=== PATIENT | male | born 1955 | race African-American/Black ===

== ENCOUNTER 2017-05-11 09:23 | Outpatient (CLI) | payer OTHER ==
--- NOTE | 2017-05-11 10:11 | RAD ---
LUMBAR SPINE 2 VIEWS: DATE: 05/11/17. COMPARISON: 02/08/17. HISTORY: Back pain, right lower extremity radiculopathy. FINDINGS: Unilateral right-sided L5 and S1 pedicle screws noted with a vertically oriented interlocking meggan, st able. Intervertebral disk device noted at the lumbosacral junction. There is anterior osteophyte fo rmation at L2-3, L3-4, L4-5, and L5-S1. No acute osseous abnormality. IMPRESSION: Stable postoperative and degenerative changes within the lumbar spine. POS: [facility]
== END 2017-05-11 09:24 | disposition home or self-care (01) ==
LOC: TBSIIMAG 09:23
PROVIDERS: ATTEND Neurological Surgery
DX: M47.26 Other spondylosis with radiculopathy, lumbar region (principal); Z98.890 Other specified postprocedural states
CPT/HCPCS: 72100

== ENCOUNTER 2017-05-29 06:42 | Day surgery (SDC) | payer OTHER ==
[~2017-05-29 06:42] MED LIST: FLU VACC QS2017-18 36 mo. & older 0.5 ML SYRINGE IM ONE
[2017-05-29 07:25] VITALS: BMI 26.8
[2017-05-29 07:27] VITALS: BP 157/82; TEMP 98.4
--- NOTE | 2017-05-29 09:02 | RAD ---
LUMBAR SPINE MYELOGRAM: DATE: 05/29/17. HISTORY: Low back pain and radiculopathy. FINDINGS: Informed consent was obtained prior to the procedure. Utilization Management Nurse imaging of the lumbar spine demonstrates 5 lumbar-type vertebral bodies with unilateral right-s ided L5 and S1 pedicle screws and a vertically oriented interlocking meggan. There is an intervertebral disk device at the L5-S1 level. The patient was placed in the oblique prone position and the skin overlying the lower lumbar spine wa s prepped and draped in normal sterile fashion. The skin overlying the L3 vertebral body was anesthetized with 1% buffered Lidocaine. With intermitt ent fluoroscopic guidance, a 22-gauge spinal needle was advanced into the thecal sac and removal of s tylette yields clear cerebrospinal fluid. Subsequently, approximately 10 cc of Isovue 250 was inject ed, outlining nerve roots of the cauda equina. The needle was removed. The patient tolerated the pr ocedure well. The patient was sent to the CT scanner for a lumbar spine CT myelogram. EXPOSURE DATA: 0.9 minutes of fluoroscopic time, 355.1 mGy*^mw. IMPRESSION: Successful lumbar spine myelogram as detailed above. POS: [facility]
--- NOTE | 2017-05-29 10:35 | CT ---
LUMBAR SPINE CT MYELOGRAM: DATE: 05/29/17. COMPARISON: 08/25/16. HISTORY: Low back pain and lumbar radiculopathy. TECHNIQUE: Following the intrathecal administration of iodinated contrast media, serial axial CT imaging obtaine d at 2.5 mm intervals from the lower thoracic spine through the lower sacrum. Coronal and sagittal r eformatted imaging obtained. FINDINGS: There is a right-sided pedicle screw at the L5 and S1 levels, new when compared to the prior exam. T here is a vertically oriented interlocking meggan. There is a disk device present at the L5-S1 level as well. No evidence for hardware failure is noted. Evaluation of the nonosseous structures demonstrates scattered atherosclerotic calcification of the a bdominal aorta and the pelvic arterial structures. There is no anterolisthesis or retrolisthesis noted. Conus medullaris terminates at the L1-2 level. T12-L1: No central canal or neural foraminal stenosis. L1-2: No central canal or neural foraminal stenosis. L2-3: Mild bilateral facet hypertrophy/hypertrophy of ligamentum flavum. No significant central can al or neural foraminal stenosis. L3-4: Mild bilateral facet hypertrophy and hypertrophy of the ligamentum flavum. Minimal disk bulge . No significant central canal or neural foraminal stenosis. L4-5: Mild bilateral facet hypertrophy and hypertrophy of the ligamentum flavum. Mild disk bulge. No significant central canal stenosis. Mild bilateral neural foraminal stenosis. L5-S1: Bilateral laminectomy change noted with no central canal stenosis. Mild bilateral facet hype rtrophy. The patient appears status post facetectomy n the right. There is no significant central c anal or neural foraminal stenosis. No worrisome lytic or blastic bone lesions. No acute fracture. IMPRESSION: Postoperative changes as detailed above. No high-grade central canal or neural foraminal stenosis is noted within the lumbar spine at any level. POS: [facility]
[2017-05-29] MEDS ORDERED: Iopamidol-M 200 41% 20 ML VIAL ONE (13:58)
== END 2017-05-29 09:40 | disposition home or self-care (01) ==
LOC: RAD 06:42
PROVIDERS: ATTEND Neurological Surgery
PROC: B01B1ZZ Fluoroscopy of Spinal Cord using Low Osmolar Contrast (ICD-10-PCS; principal; 2017-05-29)
DX: M54.16 Radiculopathy, lumbar region (principal); Z88.8 Allergy status to other drugs, medicaments and biological substances; Z98.1 Arthrodesis status
CPT/HCPCS: 62304; 72132

== ENCOUNTER 2018-09-08 10:36 | Emergency (ER) | payer BC, OTHER ==
[2018-09-08 11:06] LABS: #Eosinphils 0.1 thou/uL (0.0-0.7); #Lymphocytes 1.4 thou/uL (1.20-3.40); #Monocytes 0.5 thou/uL (0.11-0.59); #Neutrophils 3.1 thou/uL (1.40-6.50); %Basophils 0.8 % (0.0-1.0); %Eosinophils 2.5 % (0.0-10.0); %Lymphocytes 27.1 % (21.0-51.0); %Neutrophils 59.6 % (42.0-75.0); Hemoglobin 11.9 g/dL (14.0-18.0); Mean Corpuscular HGB CONC 32.6 g/dL (32.0-36.0); Mean Corpuscular Hemoglobin 28.7 pg (27.0-31.0); Mean Corpuscular Volume 88.1 fL (78.0-98.0); Platelet Count 156 thou/uL (130-400); Red Blood Cell (RBC) Count 4.13 mill/uL (4.70-6.10); White Blood Cell (WBC) Count 5.1 thou/uL (4.8-10.8)
[2018-09-08 11:23] LABS: ALT (SGPT) 13 U/L (8-55); AST (SGOT) 14 U/L (5-34); Albumin 3.6 g/dL (3.4-4.8); Alkaline Phosphatase 96 U/L (40-150); Anion Gap 13 mmol/L (10-20); BUN (Urea Nitrogen) 23 mg/dL (8.4-25.7); Bilirubin, Total 0.4 mg/dL (0.2-1.2); Calc. Creatinine Clearance 0 mL/min (70-130); Calcium 9.4 mg/dL (7.8-10.44); Carbon Dioxide 23 mmol/L (23-31); Chloride 107 mmol/L (98-107); Estimated GFR-MDRD 77; Globulin 3.4 g/dL (2.4-3.5); Glucose 208 mg/dL (80-115); Potassium 4.4 mmol/L (3.5-5.1); Sodium 139 mmol/L (136-145)
== END 2018-09-08 12:13 | disposition home or self-care (01) ==
LOC: SCSER 10:36
DX: I10 Essential (primary) hypertension (principal); E78.5 Hyperlipidemia, unspecified; E11.9 Type 2 diabetes mellitus without complications; Z79.82 Long term (current) use of aspirin; Z79.4 Long term (current) use of insulin; Z79.899 Other long term (current) drug therapy; F17.210 Nicotine dependence, cigarettes, uncomplicated
CPT/HCPCS: 36415; 80053; 84484; 85025; 93005

== ENCOUNTER 2018-10-18 18:04 | Observation (INO) | payer BC ==
[~2018-10-18 18:04] MED LIST changes: -FLU VACC QS2017-18 36 mo. & older 0.5 ML SYRINGE IM ONE; +ISOVUE-370 76%-LOCM 1 ML ONE
[2018-10-18 18:53] LABS: #Eosinphils 0.3 thou/uL (0.0-0.7); #Lymphocytes 1.4 thou/uL (1.20-3.40); #Monocytes 0.6 thou/uL (0.11-0.59); #Neutrophils 5.8 thou/uL (1.40-6.50); %Eosinophils 4.1 % (0.0-10.0); %Lymphocytes 17.3 % (21.0-51.0); %Monocytes 6.8 % (0.0-10.0); %Neutrophils 71.8 % (42.0-75.0); Hemoglobin 13.1 g/dL (14.0-18.0); Mean Corpuscular HGB CONC 32.8 g/dL (32.0-36.0); Mean Corpuscular Hemoglobin 28.7 pg (27.0-31.0); Mean Corpuscular Volume 87.6 fL (78.0-98.0); Platelet Count 187 thou/uL (130-400); RBC Distribution Width 13.3 % (11.5-14.5); Red Blood Cell (RBC) Count 4.55 mill/uL (4.70-6.10); White Blood Cell (WBC) Count 8.1 thou/uL (4.8-10.8)
--- NOTE | 2018-10-18 18:54 | RAD ---
Portable frontal chest radiograph: 10/18/2018 COMPARISON: None HISTORY: Shortness of breath FINDINGS: Lungs are clear. Mild increased linear interstitial density and pulmonary hyperinflation. S carisa lead transvenous AICD inserted via a left subclavian approach. Heart and mediastinal contours appear within normal limits. IMPRESSION: No acute findings.
[2018-10-18 19:13] LABS: ALT (SGPT) 13 U/L (8-55); AST (SGOT) 17 U/L (5-34); Albumin 4.2 g/dL (3.4-4.8); Alkaline Phosphatase 106 U/L (40-150); Anion Gap 15 mmol/L (10-20); BUN (Urea Nitrogen) 22 mg/dL (8.4-25.7); Bilirubin, Total 0.6 mg/dL (0.2-1.2); Calc. Creatinine Clearance 0 mL/min (70-130); Calcium 9.8 mg/dL (7.8-10.44); Carbon Dioxide 24 mmol/L (23-31); Chloride 102 mmol/L (98-107); Estimated GFR-MDRD 68; Globulin 3.7 g/dL (2.4-3.5); Glucose 134 mg/dL (80-115); Potassium 4.2 mmol/L (3.5-5.1); Protein, Total 7.9 g/dL (5.8-8.1); Sodium 137 mmol/L (136-145)
[2018-10-18 19:40] LABS: CK (CPK) 85 U/L (30-200); Lipase 40 U/L (8-78)
[2018-10-18] MEDS ORDERED: Acetaminophen 500 MG TAB ONE (20:17)
--- NOTE | 2018-10-18 20:35 | CT ---
CT angiogram chest: 10/18/2018 COMPARISON: None HISTORY: Weakness, lightheaded, dyspnea, assess for pulmonary embolism TECHNIQUE: Axial CT imaging at 2.5 mm intervals through the chest with IV contrast using CT angiogram protocol with coronal and sagittal 3-D reformatted imaging. FINDINGS: Single lead transvenous AICD noted. No mediastinal lymphadenopathy, hilar, or axillary lymp hadenopathy. No pleural, pericardial, or mediastinal fluid. The imaged upper abdomen appears grossly unremarkable. There is mild diffuse wall thickening of the esophagus versus underdistention. Coronary arterial stent material noted on the left. No pneumothorax is evident on either side. Mild subpleural emphysematous changes are noted within the upper lobes, right greater than left. Gran ulomata are noted within the lung parenchyma bilaterally. There is a small groundglass nodule within the posterior aspect of the right lower lobe on axial imag e 91 and coronal image 104 measuring approximately 8 mm. No pulmonary arterial filling defect is seen to suggest the presence of acute pulmonary arterial embo lism. Review of the osseous structures demonstrates no worrisome lytic or blastic lesions. IMPRESSION: No evidence for pulmonary arterial embolism. 8 mm groundglass nodule within the right low er lobe for which follow-up CT examination of the chest is advised in 6 months.
[2018-10-18 20:39] LABS: Bilirubin Negative (Negative); Blood, Urine Negative (Negative); Clarity CLEAR (Clear); Glucose, Urine (Dipstick) Negative (Negative); Leukocyte Negative (Negative); Nitrite Negative (Negative); Protein, Urine (Dipstick) 30 mg/dL (Neg-Trace); Specific Gravity, Urine 1.036 (1.002-1.036)
[2018-10-18 20:42] LABS: Bacteria/HPF None Seen HPF (None Seen); Hyaline Casts/LPF 0-3 HYALINE CAST LPF (0-3 Hyaline); Squamous Epithelial None Seen HPF (0-3); WBC/HPF 0-3 HPF (0-3)
--- NOTE | 2018-10-18 21:25 | PDOC.FPRHP ---
- Allergies/Adverse Reactions Allergies Allergy/AdvReac Type Severity Reaction Status Date / Time gabapentin Allergy Hives Verified 11/28/16 08:16 - Home Medications Medication Instructions Recorded Confirmed Type Insulin Lispro Protamin/Lispro 5 unit SC BID-AC 01/29/16 05/29/17 History [HumaLOG Mix 75/25 KwikPen] Aspirin [Aspir-Low] 81 mg PO QAM 08/24/16 05/29/17 History Carvedilol 12.5 mg PO QAM 08/24/16 05/29/17 History Sotalol HCl [Betapace] 80 mg PO QAM 08/24/16 05/29/17 History Valsartan/Hydrochlorothiazide 1 each PO DAILY 08/24/16 05/29/17 History [Valsartan-Hctz 320-25 mg Tab] Dapagliflozin Propanediol [Farxiga] 10 mg PO QAM 11/28/16 05/29/17 History Rosuvastatin Calcium 10 mg PO QAM 11/28/16 05/29/17 History - History PMHx: PSHx: FHx: Social: - Vital signs BP: [] HR: [] RR: [] Tmax: [] Pox: []% on [] Wt: [] FMR H&P: Results - Labs Result Diagrams: 10/18/18 18:42 10/18/18 18:42 Lab results: WBC 8.1 thou/uL (4.8-10.8) 10/18/18 18:42 Hgb 13.1 g/dL (14.0-18.0) L 10/18/18 18:42 Hct 39.9 % (42.0-52.0) L 10/18/18 18:42 MCV 87.6 fL (78.0-98.0) 10/18/18 18:42 Plt Count 187 thou/uL (130-400) 10/18/18 18:42 Neutrophils % 71.8 % (42.0-75.0) 10/18/18 18:42 Sodium 137 mmol/L (136-145) 10/18/18 18:42 Potassium 4.2 mmol/L (3.5-5.1) 10/18/18 18:42 Chloride 102 mmol/L (98-107) 10/18/18 18:42 Carbon Dioxide 24 mmol/L (23-31) 10/18/18 18:42 BUN 22 mg/dL (8.4-25.7) 10/18/18 18:42 Creatinine 1.30 mg/dL (0.7-1.3) 10/18/18 18:42 Glucose 134 mg/dL (80-115) H 10/18/18 18:42 Lactic Acid 1.6 mmol/L (0.5-2.2) 10/18/18 18:54 Calcium 9.8 mg/dL (7.8-10.44) 10/18/18 18:42 Total Bilirubin 0.6 mg/dL (0.2-1.2) 10/18/18 18:42 AST 17 U/L (5-34) 10/18/18 18:42 ALT 13 U/L (8-55) 10/18/18 18:42 Alkaline Phosphatase 106 U/L (40-150) 10/18/18 18:42 Creatine Kinase 85 U/L (30-200) 10/18/18 18:42 B-Natriuretic Peptide 72.4 pg/mL (0-100) 10/18/18 18:42 Serum Total Protein 7.9 g/dL (5.8-8.1) 10/18/18 18:42 Albumin 4.2 g/dL (3.4-4.8) 10/18/18 18:42 Lipase 40 U/L (8-78) 10/18/18 18:42 Urine Ketones Negative mg/dL (Negative) 10/18/18 20:25 Urine Blood Negative (Negative) 10/18/18 20:25 Urine Nitrite Negative (Negative) 10/18/18 20:25 Ur Leukocyte Esterase Negative (Negative) 10/18/18 20:25 Urine RBC 4-6 HPF (0-3) 10/18/18 20:25 Urine WBC 0-3 HPF (0-3) 10/18/18 20:25 Ur Squamous Epith Cells None Seen HPF (0-3) 10/18/18 20:25 Urine Bacteria None Seen HPF (None Seen) 10/18/18 20:25 FMR H&P: Upper Level - Plan Date/Time: 10/18/182124 I, [], have evaluated this patient and agree with findings/plan as outlined by international controller resident. Pertinent changes/additions are listed here.
[2018-10-18 22:08] LABS: Troponin I 0.014 ng/mL (< 0.028)
[2018-10-18] MEDS ORDERED: Morphine 4 MG/ML VIAL ONE (22:20)
[2018-10-18] MEDS ORDERED: Ondansetron PF 4 MG/2 ML Vial IVP PRN (22:25)
[2018-10-18] MEDS ORDERED: Ondansetron ODT 4 MG TAB PO PRN (22:25)
[2018-10-18] MEDS ORDERED: Acetaminophen 325 MG TAB PO PRN (22:25)
[2018-10-18] MEDS ORDERED: Ondansetron PF 4 MG/2 ML Vial ONE (22:41)
[2018-10-18] MEDS ORDERED: Ondansetron PF 4 MG/2 ML Vial SLOW IVP SCH (23:15)
[2018-10-18] MEDS ORDERED: Sodium Chloride 0.9% 2,000 ML IV SCH (23:15)
[2018-10-19] MEDS: Nicotine 14 MG PATCH TD SCH ×2 (00:31→21:21)
[2018-10-19] MEDS: Lactated Ringer's 1,000 ML IV SCH ×2 (00:31→07:00)
--- NOTE | 2018-10-19 00:34 | PDOC.FPRHP ---
- History of Present Illness Chief Complaint: SOB, abdominal pain History of Present Illness: 63 yo M with PMH CAD, HTN, HLD presnets with for 3 day history of malaise, dizziness, nausea with standing, SOB with exertion, weakness, fever/chills. Also notes intermittent LLQ abdominal pain that started last night, not associated with eating. Endorses decreased PO intake and urine output, "sinus headache". Denies vomiting. 2 loose BMs yesterday, none since. The most bothersome symptoms prompting evaluation were weakness, SOB and abdominal pain. Has had 2 colonoscopies in past. Last one >10 years ago. ED Course: levaquin, tylenol, 1L - Allergies/Adverse Reactions Allergies Allergy/AdvReac Type Severity Reaction Status Date / Time gabapentin Allergy Hives Verified 11/28/16 08:16 - Home Medications Medication Instructions Recorded Confirmed Type Aspirin [Aspir-Low] 81 mg PO QAM 08/24/16 10/19/18 History Carvedilol 12.5 mg PO BID 08/24/16 10/19/18 History Sotalol HCl [Betapace] 80 mg PO QAM 08/24/16 10/19/18 History Amlodipine Besylate [amLODIPine 2.5 mg PO DAILY 10/19/18 10/19/18 History Besylate] Liraglutide [Victoza 2-Patrick] 1.8 mg SC BID 10/19/18 10/19/18 History Lisinopril 20 mg PO DAILY 10/19/18 10/19/18 History Ticagrelor [Brilinta] 1 tab PO BID 10/19/18 10/19/18 History metFORMIN [Glucophage] 1,000 mg PO BID- 10/19/18 10/19/18 History - History PMHx: DM, CAD, HTN, HLD, prostate cancer s/p surgery in 90s. PSHx: L wrist, prostate, 2 back surgeries, 2 stents, defibrillator FHx:DM, CAD, colon cancer Social: Current smoker on chantix trying to quit, 30 pack year history. No tobacco or alcohol use. - Review of Systems General: reports: fever/chills, weight/appetite/sleep changes, fatigue Eyes: reports: other (sinus headache). denies: vision changes ENT: denies: nasal congestion Respiratory: reports: shortness of breath, exercise intolerance. denies: cough Cardiovascular: denies: chest pain, palpitation, edema Gastrointestinal: reports: nausea, diarrhea, abdominal pain. denies: vomiting Genitourinary: denies: dysuria Skin: denies: rashes, lesions Musculoskeletal: denies: pain, swelling Neurological: reports: weakness. denies: numbness - Vital signs BP: 150/88 HR: 89 RR: 18 Tmax: 100.4 Pox: 100% on RA Wt: 95 kg - Physical Exam Constitutional: NAD HEENT: normocephalic and atraumatic, EOMI, grossly normal vision, grossly normal hearing, oropharynx clear Neck: supple Heart: RRR, normal S1/S2, no edema Lungs: CTAB, no respiratory distress Abdomen: soft, bowel sounds present, other (mild LLQ tenderness with deep palpation) Neurological: no focal deficit Skin: no rash/lesions, good turgor Heme/Lymphatic: no unusual bruising or bleeding Psychiatric: normal mood and affect FMR H&P: Results - Labs Result Diagrams: 10/19/18 03:33 10/19/18 03:33 Lab results: WBC 8.1 thou/uL (4.8-10.8) 10/18/18 18:42 Hgb 13.1 g/dL (14.0-18.0) L 10/18/18 18:42 Hct 39.9 % (42.0-52.0) L 10/18/18 18:42 MCV 87.6 fL (78.0-98.0) 10/18/18 18:42 Plt Count 187 thou/uL (130-400) 10/18/18 18:42 Neutrophils % 71.8 % (42.0-75.0) 10/18/18 18:42 Sodium 137 mmol/L (136-145) 10/18/18 18:42 Potassium 4.2 mmol/L (3.5-5.1) 10/18/18 18:42 Chloride 102 mmol/L (98-107) 10/18/18 18:42 Carbon Dioxide 24 mmol/L (23-31) 10/18/18 18:42 BUN 22 mg/dL (8.4-25.7) 10/18/18 18:42 Creatinine 1.30 mg/dL (0.7-1.3) 10/18/18 18:42 Glucose 134 mg/dL (80-115) H 10/18/18 18:42 Lactic Acid 1.6 mmol/L (0.5-2.2) 10/18/18 18:54 Calcium 9.8 mg/dL (7.8-10.44) 10/18/18 18:42 Total Bilirubin 0.6 mg/dL (0.2-1.2) 10/18/18 18:42 AST 17 U/L (5-34) 10/18/18 18:42 ALT 13 U/L (8-55) 10/18/18 18:42 Alkaline Phosphatase 106 U/L (40-150) 10/18/18 18:42 Creatine Kinase 85 U/L (30-200) 10/18/18 18:42 B-Natriuretic Peptide 72.4 pg/mL (0-100) 10/18/18 18:42 Serum Total Protein 7.9 g/dL (5.8-8.1) 10/18/18 18:42 Albumin 4.2 g/dL (3.4-4.8) 10/18/18 18:42 Lipase 40 U/L (8-78) 10/18/18 18:42 Urine Ketones Negative mg/dL (Negative) 10/18/18 20:25 Urine Blood Negative (Negative) 10/18/18 20:25 Urine Nitrite Negative (Negative) 10/18/18 20:25 Ur Leukocyte Esterase Negative (Negative) 10/18/18 20:25 Urine RBC 4-6 HPF (0-3) 10/18/18 20:25 Urine WBC 0-3 HPF (0-3) 10/18/18 20:25 Ur Squamous Epith Cells None Seen HPF (0-3) 10/18/18 20:25 Urine Bacteria None Seen HPF (None Seen) 10/18/18 20:25 FMR H&P: A/P - Problem List (1) SIRS (systemic inflammatory response syndrome) Current Visit: Yes Status: Acute Code(s): R65.10 - SIRS OF NON-INFECTIOUS ORIGIN W/O ACUTE ORGAN DYSFUNCTION (2) Shortness of breath on exertion Current Visit: Yes Status: Acute Code(s): R06.02 - SHORTNESS OF BREATH (3) Lung nodule Current Visit: Yes Status: Acute Code(s): R91.1 - SOLITARY PULMONARY NODULE (4) CAD (coronary artery disease) Current Visit: Yes Status: Chronic Code(s): I25.10 - ATHSCL HEART DISEASE OF [place] CORONARY ARTERY W/O ANG PCTRS (5) HTN (hypertension) Current Visit: Yes Status: Chronic Code(s): I10 - ESSENTIAL (PRIMARY) HYPERTENSION (6) Tobacco abuse Current Visit: Yes Status: Chronic Code(s): Z72.0 - TOBACCO USE (7) Diabetes mellitus Current Visit: No Status: Chronic Code(s): E11.9 - TYPE 2 DIABETES MELLITUS WITHOUT COMPLICATIONS Qualifiers: Diabetes mellitus type: type 2 Diabetes mellitus retirement insulin use: with retirement use (8) HLD (hyperlipidemia) Current Visit: No Status: Chronic Code(s): E78.5 - HYPERLIPIDEMIA, UNSPECIFIED - Plan SIRS with unclear source, possibly 2/2 diverticulitis - multiple symptoms, but intermittent LLQ pain more bothersome symptom - fever 100.4, tachycardia in ED. WBC 8, no tachypnea. - flu negative - EKG with new T wave inversions, sinus tachycardia, LVH - radiology recommended CT ab/pelvis with IV contrast in am preferred as pt already received contrast for CTA. Alternative would be PO contrast tonight if necessary. - Continue flagyl 10/19 and levaquin 10/18 SOB with exertion - no tachypnea on exam, satting well on RA - d-dimer elevated, CTA negative for PE - no CP, troponin negative Incidental lung nodule on CT - 8mm in RLL, recommend follow up CT in 6 months DM2, uncontrolled - reported A1c of 10 in clinic 09/13 (down from 14) - PCP working on better control - On metformin, victoza - will continue. Per clinic chart patient supposed to take 70/30 30 U BID, however patient stopped taking. Encouraged to restart at most recent clinic visit. BG 130, will hold insulin for now and add back when appropriate. - accuchecks Chronic normocytic anemia - continue to monitor CAD s/p stent (1 placed 3 months ago) - continue home brilinta, aspirin HTN - hold home sotalol, amlodipine, carvedilol, lisinopril HLD - not on home statin, in clinic chart but does not report taking Tobacco abuse - current smoker, trying to quit on chantix Hx of "defibrillator for slow heart rate" Dispo: admit to telemetry inpatient Diet: HH/CC Ppx: lovenox PCP: Ayah ALMONTE Case discussed with Dr. Hays FMR H&P: Upper Level - Pertinent history 63 yo AAM with PMHx poorly controlled DM and HTN presents to ED with cc of malaise, shortness of breath, and newly developed abdominal pain over the last 3 days. Today the abdominal pain has increased a bit but it was predominately shortness of breath with exertion that brought him in. He has also had fever/ chills. His reports he was also complaining of abdominal pain last night. Denies n/v but did have a couple of loose stools yesterday. Denies sick contacts or recent travel. Also endorses mild headache. - Pertinent findings VSS Labs and imaging reviewed Gen: awake, alert, oriented x3 HEENT: NCAT, MMM, trachea midline, no JVD, no nasal congestion CV: RRR, no murmur noted RESP: CTAB ABD: soft, TTP in LLQ, bowel sounds present throughout, no rebound or rigidity EXT: pulses 2+ throughout, no edema, strength 5/5 throughout SKIN: no rashes or lesions - Plan Date/Time: 10/19/18 0034 63 yo M with malaise, meeting SIRS criteria with suspected diverticulitis 1. SIRS with suspected diverticulitis - Will give 2nd L fluids in ED, continue maintenance fluids - Given levaquin, will add flagyl - CT A/P in the morning, radiology recommends IV and PO contrast and had CTA tonight - no acute abdomen at this time - Will admit to observation 2. Shortness of breath with exertion - EKG with new t wave inversion but no documented EKG since recent stent placement - Trop negative - No SOB at this time - D dimer elevated, CTA negative - Continue to monitor Please see Dr. Cantu's note regarding A/P for remainder of comorbidities including HTN, DM, tobacco abuse, CAD I, Heidi Cm MD, PGY-3, have evaluated this patient and agree with findings/ plan as outlined by mechanical engineering intern resident. Pertinent changes/additions are listed here. Addendum - Attending - Attending Attestation Date/Time: 10/19/18 3321 I personally evaluated the patient and discussed the management with Dr. Cantu 'on 10/18/2018 I agree with the History, Examination, Assessment and Plan documented above with any addition or exceptions noted below - 63 yo male with h/o DM, HTN, CAD s /p AICD presents c.o 3 day h/o malaise, dizziness, SOB and abdominal pain. Denies any N/V. Had some loose stools. Endorses poor appetite. Subj fever/ chills. Abdominal pain primarily on left side. PMH/PSH/Meds/SH reviewed and agree with resident's documentation. T 100.4 P87 BP 150/88 RR18 Exam repeated by me and agree with resident's findings. Labs: WBC=8.1, H/H=13.1/39.9 , Xlp=139, Hh=793, K=4.2, Rk=912, CO2=24, BUn/Cr=22/1.30, Tnzi=115, U/A- negative, AST/ALT=17/13, Trop I<0.010, lipase=40, CXR- NAD, CTA- Neg for PE. A/P : 1) SIRS - possible diverticulitis- Obs to tele. Plan for CT abd in AM- needed to defer due to recent contrast with CTA. Continue levaquin and flagyl. 2) SOB- CTA negative; no tachypnea, normal sats- continue to monitor, 3) DM- monitor BG
[2018-10-19 03:43] LABS: #Eosinphils 0.1 thou/uL (0.0-0.7); #Lymphocytes 1.3 thou/uL (1.20-3.40); #Monocytes 0.6 thou/uL (0.11-0.59); #Neutrophils 8.5 thou/uL (1.40-6.50); %Basophils 0.1 % (0.0-1.0); %Eosinophils 1.1 % (0.0-10.0); %Lymphocytes 12.5 % (21.0-51.0); %Monocytes 5.8 % (0.0-10.0); %Neutrophils 80.4 % (42.0-75.0); Hemoglobin 11.3 g/dL (14.0-18.0); Mean Corpuscular HGB CONC 32.9 g/dL (32.0-36.0); Mean Corpuscular Hemoglobin 29.1 pg (27.0-31.0); Mean Corpuscular Volume 88.3 fL (78.0-98.0); Mean Platelet Volume 7.7 fL (7.4-10.4); Platelet Count 157 thou/uL (130-400); RBC Distribution Width 13.4 % (11.5-14.5); Red Blood Cell (RBC) Count 3.88 mill/uL (4.70-6.10); White Blood Cell (WBC) Count 10.6 thou/uL (4.8-10.8)
[2018-10-19] MEDS ORDERED: Dextrose 5% in Water 1,000 ML IV PRN (04:24)
[2018-10-19] MEDS ORDERED: Dextrose 50% Abboject 50 ML SYRINGE SLOW IVP PRN (04:24)
[2018-10-19] MEDS ORDERED: HumaLOG 300 UNITS/3 ML VIAL SC PRN ×3 (04:24→13:12)
[2018-10-19 04:36] LABS: Anion Gap 11 mmol/L (10-20); BUN (Urea Nitrogen) 20 mg/dL (8.4-25.7); Calc. Creatinine Clearance 80 mL/min (70-130); Calcium 8.3 mg/dL (7.8-10.44); Carbon Dioxide 22 mmol/L (23-31); Chloride 108 mmol/L (98-107); Estimated GFR-MDRD 69; Glucose 173 mg/dL (80-115); Potassium 4.1 mmol/L (3.5-5.1); Sodium 137 mmol/L (136-145)
[2018-10-19] MEDS ORDERED: Liraglutide [Victoza 2-Pak] 1.8 MG SC SCH (09:00)
[2018-10-19] MEDS ORDERED: HumuLIN 70/30 (300 UNITS/3 ML VIAL) SC SCH (09:00)
--- NOTE | 2018-10-19 09:09 | PDOC.FM ---
- Subjective Subjective: Abd pain has resolved. Diarreha x1. No emesis. No other complaints, no fevers. - Objective MAR Reviewed: Yes Vital Signs & Weight: Vital Signs (12 hours) Temp Pulse Resp BP Pulse Ox 10/19/18 03:32 99 F 95 17 103/51 L 97 10/19/18 00:23 99 F 89 18 119/68 98 Weight Weight 95.254 kg I&O: 10/18/18 10/19/18 10/20/18 06:59 06:59 06:59 Intake Total 1180 Output Total 400 Balance 780 Result Diagrams: 10/19/18 03:33 10/19/18 03:33 Phys Exam - Physical Examination Constitutional: NAD HEENT: PERRLA dry mucosal membranes Neck: no nodes, full ROM Cardiovascular: RRR, no significant murmur Gastrointestinal: soft, non-tender, no distention, positive bowel sounds Musculoskeletal: no edema, edema present Neurological: non-focal, moves all 4 limbs Dx/Plan (1) Acute diverticulitis Code(s): K57.92 - DVTRCLI OF INTEST, PART UNSP, W/O PERF OR ABSCESS W/O BLEED Status: Acute (2) Lung nodule Code(s): R91.1 - SOLITARY PULMONARY NODULE Status: Acute (3) SIRS (systemic inflammatory response syndrome) Code(s): R65.10 - SIRS OF NON-INFECTIOUS ORIGIN W/O ACUTE ORGAN DYSFUNCTION Status: Acute (4) Shortness of breath on exertion Code(s): R06.02 - SHORTNESS OF BREATH Status: Acute (5) CAD (coronary artery disease) Code(s): I25.10 - ATHSCL HEART DISEASE OF [place] CORONARY ARTERY W/O ANG PCTRS Status: Chronic (6) HTN (hypertension) Code(s): I10 - ESSENTIAL (PRIMARY) HYPERTENSION Status: Chronic (7) Tobacco abuse Code(s): Z72.0 - TOBACCO USE Status: Chronic (8) Normocytic anemia Code(s): D64.9 - ANEMIA, UNSPECIFIED Status: Acute (9) Diabetes mellitus Code(s): E11.9 - TYPE 2 DIABETES MELLITUS WITHOUT COMPLICATIONS Status: Chronic Qualifiers: Diabetes mellitus type: type 2 Diabetes mellitus detention insulin use: with detention use (10) HLD (hyperlipidemia) Code(s): E78.5 - HYPERLIPIDEMIA, UNSPECIFIED Status: Chronic - Plan Plan: SIRS with unclear source, possibly 2/2 diverticulitis - multiple symptoms, but intermittent LLQ pain more bothersome symptom - fever 100.4, tachycardia in ED. WBC 8, no tachypnea. - flu negative - EKG with new T wave inversions, sinus tachycardia, LVH - radiology recommended CT ab/pelvis with IV contrast in am preferred as pt already received contrast for CTA. Alternative would be PO contrast tonight if necessary. - Continue flagyl 10/19 and levaquin 10/18 SOB with exertion, resolved - nonhypoxic on Ra - d-dimer elevated, CTA negative for PE - no CP, troponin negative - likely 2/2 to abd pain Incidental lung nodule on CT - 8mm in RLL, recommend follow up CT in 6 months DM2, uncontrolled - reported A1c of 10 in clinic 09/13 (down from 14) - PCP working on better control - On metformin, victoza - will continue. Per clinic chart patient supposed to take 70/30 30 U BID, however patient stopped taking. Encouraged to restart at most recent clinic visit. BG 130, will hold insulin for now and add back when appropriate. - accuchecks Chronic normocytic anemia - continue to monitor CAD s/p stent (1 placed 3 months ago) - continue home brilinta, aspirin HTN - hold home sotalol, amlodipine, carvedilol, lisinopril HLD - not on home statin, in clinic chart but does not report taking Tobacco abuse - current smoker, trying to quit on chantix Hx of bradycardia with AICD -pulse wnl at time of examination, pt asx Dispo: Pending CT A/P for dx of divertciulitis. Pt can d/c home on PO abx pending clinical course. Diet: HH/CC Ppx: lovenox PCP: Ayah - [facility] Case discussed with Dr. Hays
[2018-10-19] MEDS ORDERED: Aspirin Chewable 81 MG TAB ONE (10:16)
[2018-10-19] MEDS ORDERED: Enoxaparin Sodium 40 MG/0.4 ML SYRINGE ONE (10:16)
[2018-10-19] MEDS: Aspirin 81 mg Enteric Coated Tablet PO SCH (10:43)
[2018-10-19] MEDS: Enoxaparin Sodium 40 MG/0.4 ML SYRINGE SC SCH (10:43)
--- NOTE | 2018-10-19 11:03 | CT ---
CT Abdomen Pelvis W Con: 10/19/2018 7:35 AM CLINICAL INFORMATION: Suspected diverticulitis COMPARISON: None. Procedure: Multiple contiguous axial images were obtained and a CT of the abdomen and pelvis with IV contrast. C oronal reformats were performed. FINDINGS: Lower Chest: Dependent atelectatic changes Vessels: Normal caliber aorta. No. Fat stranding. Abdomen: Portal vein:Patent Gallbladder: No calcified gallstones. Normal caliber wall. Liver: within normal limits. Pancreas: within normal limits. Spleen: within normal limits. Adrenals: Right adrenal gland is unremarkable. 0.9 x 0.7 cm left adrenal nodule. Kidneys: Symmetric enhancement. No obstructive uropathy. Peritoneum: Trace amount of fluid in the right pericolic gutter. Trace amount of fluid in the left pa racolic gutter. Bowel: Unremarkable gastric mucosa. Multiple normal caliber small bowel loops. Mesentery and Retroperitoneum: No enlarged mesenteric or retroperitoneal lymph nodes. Abdominal Wall: within normal limits. Pelvis: Reproductive Organs: Possible previous prostatectomy. Pelvis there is a small amount of complex fluid in the pelvis with attenuation coefficient of 35 Houn sfield units. Bladder: within normal limits. Bones: within normal limits. IMPRESSION: 1. Nonspecific small amount of fluid in the left and right paracolic gutter as well as complex fluid in the pelvis. 2. No evidence of bowel obstruction. 3. No evidence of diverticulosis or diverticulitis 4. Normal caliber appendix 5. Incidental left adrenal nodule, incompletely evaluated
[2018-10-19] MEDS ORDERED: Iopamidol 370 76% 50 ML VIAL FS ONE (11:16)
[2018-10-19] MEDS ORDERED: ISOVUE-370 76%-LOCM 1 ML ONE (11:16)
[2018-10-19] MEDS: Sotalol HCl 80 MG TAB PO SCH (11:50)
[2018-10-19] MEDS: metFORMIN 500 MG TAB PO SCH ×2 (11:50→16:56)
[2018-10-19] MEDS: TICAGRELOR 90 MG TABLET PO SCH ×2 (11:51→21:20)
--- NOTE | 2018-10-19 12:37 | PRG ---
DATE OF SERVICE: 10/19/2018 Mr. Delgado is a pleasant 62-year-old patient, who was admitted with a 3-day history of malaise, dizziness, nausea, and left lower quadrant abdominal pain. He was started on antibiotics, fluids for probable acute diverticulitis. He did meet SIRS criteria. His white count however was normal at 8100. When I examined the patient on rounds, he looked and felt much better. He still had some left lower quadrant discomfort, but no guarding, rebound, or rigidity. He was about to go for a CT of the abdomen. He was tolerating a liquid diet. I believe if his CT scan shows no complications of diverticulitis, it would be reasonable to discharge him on oral antibiotics. He will be given close instructions for followup on Monday in our clinic. Job ID: [id number]
[2018-10-19 12:40] VITALS: BMI 25.6
[2018-10-19] MEDS: Carvedilol 6.25 MG TAB PO SCH (21:20)
--- NOTE | 2018-10-20 05:40 | PDOC.FM ---
- Subjective Subjective: Pt denies abdominal pain, SOB, CP, or nausea/vomiting overnight. He denies any other complaints and has no needs at this time. - Objective MAR Reviewed: Yes Vital Signs & Weight: Vital Signs (12 hours) Temp Pulse Resp BP BP Pulse Ox 10/20/18 03:51 98.9 F 82 16 129/63 95 10/19/18 21:20 139/65 10/19/18 19:20 98.6 F 85 12 139/65 99 Weight Weight 95.617 kg I&O: 10/18/18 10/19/18 10/20/18 06:59 06:59 06:59 Intake Total 1180 900 Output Total 400 Balance 780 900 Result Diagrams: 10/20/18 04:38 10/20/18 04:38 Phys Exam - Physical Examination Constitutional: NAD HEENT: moist MMs Neck: no JVD, full ROM Respiratory: no wheezing, no rales, clear to auscultation bilateral Cardiovascular: RRR, no significant murmur, no rub Gastrointestinal: soft, no distention, positive bowel sounds Mild tenderness on left upper and lower quadrants, no rebound Musculoskeletal: no edema, pulses present Neurological: normal sensation, moves all 4 limbs Psychiatric: normal affect, A&O x 3 Dx/Plan (1) Lung nodule Code(s): R91.1 - SOLITARY PULMONARY NODULE Status: Acute (2) SIRS (systemic inflammatory response syndrome) Code(s): R65.10 - SIRS OF NON-INFECTIOUS ORIGIN W/O ACUTE ORGAN DYSFUNCTION Status: Acute (3) CAD (coronary artery disease) Code(s): I25.10 - ATHSCL HEART DISEASE OF [place] CORONARY ARTERY W/O ANG PCTRS Status: Chronic (4) HTN (hypertension) Code(s): I10 - ESSENTIAL (PRIMARY) HYPERTENSION Status: Chronic (5) Tobacco abuse Code(s): Z72.0 - TOBACCO USE Status: Chronic (6) Normocytic anemia Code(s): D64.9 - ANEMIA, UNSPECIFIED Status: Acute (7) Diabetes mellitus Code(s): E11.9 - TYPE 2 DIABETES MELLITUS WITHOUT COMPLICATIONS Status: Chronic Qualifiers: Diabetes mellitus type: type 2 Diabetes mellitus assisted insulin use: with assisted use (8) HLD (hyperlipidemia) Code(s): E78.5 - HYPERLIPIDEMIA, UNSPECIFIED Status: Chronic - Plan Plan: This is a 63 yo male with a pmh of CAD s/p stent, DM, HTN, HLD, Bradycardia with AICD SIRS with unknown source -Less likely diverticulitis -Possibly unrelated URI -Flu negative, blood cultures NGTD -Continue flagyl (10/19) and levaquin (10/18), consider deescalating today based on clinic picture SOB wit exertion, resolved -CTA shows no PE, there is an 8mm groundglass nodule in the right lower lobe that can be reevaluated in 6 months DM2, Uncontrolled -reported A1c of 10 -Continue metformin and victoza, recent clinic visit, pt started on 70/30 30U BID, will start when appropriate -ACHS accuchecks, mild SSI Chronic normocytic anemia, stable CAD s/p stent placement 3 months ago -Continue home brilinta and aspirin HTN -Continue home coreg, lisinopril, carvedilol, and sotalol HLD -Start atorvastatin Tobacco abuse -encourage cessation, on chantix Hx of bradycardia with AICD Addendum - Attending - Attending Attestation Date/Time: 10/20/18 [id number] I personally evaluated the patient and discussed the management with Dr. Rasheed I agree with the History, Examination, Assessment and Plan documented above with any addition or exceptions noted below. Patient feeling better taking po well can be discharged today for outpatient follow up.
[2018-10-20 05:43] LABS: Anion Gap 11 mmol/L (10-20); BUN (Urea Nitrogen) 15 mg/dL (8.4-25.7); Calc. Creatinine Clearance 102 mL/min (70-130); Calcium 8.8 mg/dL (7.8-10.44); Carbon Dioxide 24 mmol/L (23-31); Chloride 108 mmol/L (98-107); Estimated GFR-MDRD Greater than 90; Glucose 107 mg/dL (80-115); Potassium 3.9 mmol/L (3.5-5.1); Sodium 139 mmol/L (136-145)
[2018-10-20 05:49] LABS: #Eosinphils 0.2 thou/uL (0.0-0.7); #Lymphocytes 1.8 thou/uL (1.20-3.40); #Monocytes 0.7 thou/uL (0.11-0.59); #Neutrophils 4.4 thou/uL (1.40-6.50); %Basophils 0.1 % (0.0-1.0); %Eosinophils 2.9 % (0.0-10.0); %Lymphocytes 25.1 % (21.0-51.0); %Monocytes 9.3 % (0.0-10.0); %Neutrophils 62.7 % (42.0-75.0); Hemoglobin 10.3 g/dL (14.0-18.0); Mean Corpuscular Hemoglobin 29.4 pg (27.0-31.0); Mean Corpuscular Volume 89.1 fL (78.0-98.0); Platelet Count 143 thou/uL (130-400); Platelet Morphology Comment Appears Adequate; RBC Distribution Width 13.4 % (11.5-14.5); Red Blood Cell (RBC) Count 3.49 mill/uL (4.70-6.10); White Blood Cell (WBC) Count 7.1 thou/uL (4.8-10.8)
[2018-10-20 08:27] VITALS: BP 133/68; TEMP 98.6
[2018-10-20] MEDS: metFORMIN 500 MG TAB PO SCH (08:52)
[2018-10-20] MEDS: TICAGRELOR 90 MG TABLET PO SCH (08:52)
[2018-10-20] MEDS: Aspirin 81 mg Enteric Coated Tablet PO SCH (08:52)
[2018-10-20] MEDS: Carvedilol 6.25 MG TAB PO SCH (08:53)
[2018-10-20] MEDS: Sotalol HCl 80 MG TAB PO SCH (08:54)
[2018-10-20] MEDS: Enoxaparin Sodium 40 MG/0.4 ML SYRINGE SC SCH (08:55)
[2018-10-20] MEDS ORDERED: Lisinopril 20 MG TAB PO SCH (09:00)
[2018-10-20] MEDS ORDERED: Amlodipine 5 MG TAB PO SCH (09:00)
[2018-10-20] MEDS ORDERED: Atorvastatin Calcium 40 MG TAB PO SCH (21:00)
--- NOTE | 2018-10-21 22:25 | DIS ---
DATE OF ADMISSION: 10/18/2018 DATE OF DISCHARGE: 10/20/2018 ADMITTING ATTENDING: Gela Hays MD. DISCHARGE ATTENDING: Isai Mabry MD. RESIDENT: Dax Rasheed DO CONSULTS: None. PROCEDURES: 1. Abdominal and pelvis CT with contrast showing nonspecific amount of small fluid in left and right paracolic gutter as well as complex fluid in the pelvis, no evidence of bowel obstruction, no evidence of diverticulosis or diverticulitis. Normal caliber appendix, incidental left adrenal nodule. 2. One-view chest x-ray showing no acute findings. 3. CTA chest showing no evidence of pulmonary arterial embolism. 8 mm ground-glass nodule in the right lower lobe. Recommend followup CT in 6 months. PRIMARY DIAGNOSIS: Systemic inflammatory response syndrome criteria likely due to gastroenteritis. SECONDARY DIAGNOSES: 1. Incidental lung nodule on CT. 2. Type 2 diabetes, uncontrolled. 3. Chronic normocytic anemia. 4. Coronary artery disease status post stent 3 months ago. 5. Hypertension. 6. Hyperlipidemia. 7. Tobacco abuse. DISCHARGE MEDICATIONS: 1. Atorvastatin 40 mg p.o. at bedtime. 2. Amlodipine 2.5 mg p.o. daily. 3. Aspirin 81 mg p.o. daily. 4. Carvedilol 12.5 mg p.o. b.i.d. 5. Victoza 1.2 mg SC b.i.d. 6. Lisinopril 20 mg p.o. daily. 7. Metformin 1000 mg p.o. b.i.d. 8. Sotalol 80 mg p.o. daily. 9. Brilinta 90 mg p.o. b.i.d. DISCONTINUED MEDICATIONS: None. BRIEF HISTORY OF PRESENT ILLNESS/HOSPITAL COURSE: This is a 63-year-old male with past medical history above, who came in with malaise, dizziness, nausea, shortness of breath on exertion, weakness, fever, and chills. Also noted left upper/left lower quadrant abdominal pain, decreased p.o. intake and decreased urine output. On exam, the patient had a temperature of 100.4, saturating 100% on room air. Pertinent labs nonsignificant during his hospital stay. The patient was put on Flagyl and Levaquin for concern of diverticulitis and unable to have the abdomen and pelvis CT due to his CTA earlier that day. The following day, he had the abdominal CT showing no signs of diverticulitis and was taken off antibiotics at that time. The patient was discharged with a presumptive diagnosis of gastroenteritis. The patient was tolerating p.o. intake. Had no nausea or vomiting at time of discharge. Shortness of breath was resolved shortly after admission. DISPOSITION: Stable. DISCHARGE INSTRUCTIONS: 1. Location: Home. 2. Diet: Heart healthy and diabetic. 3. Activity: As tolerated. 4. Follow up with Dr. Poon in 1 to 2 weeks. Job ID: [id number]
== END 2018-10-20 11:23 | disposition home or self-care (01) ==
LOC: ERS 18:04 → ERHOLD 20:57 → 2SW 10-19 12:32
PROVIDERS: ADMIT Family Medicine; ATTEND Family Medicine
DX: R65.10 Systemic inflammatory response syndrome (SIRS) of non-infectious origin without acute organ dysfunction (principal); R06.02 Shortness of breath; R53.81 Other malaise; R10.9 Unspecified abdominal pain; E11.9 Type 2 diabetes mellitus without complications; I10 Essential (primary) hypertension; I25.10 Atherosclerotic heart disease of native coronary artery without angina pectoris; E78.5 Hyperlipidemia, unspecified; F17.210 Nicotine dependence, cigarettes, uncomplicated; R91.1 Solitary pulmonary nodule; D64.9 Anemia, unspecified; Z88.8 Allergy status to other drugs, medicaments and biological substances; Z79.82 Long term (current) use of aspirin; Z79.84 Long term (current) use of oral hypoglycemic drugs; Z79.02 Long term (current) use of antithrombotics/antiplatelets; Z79.899 Other long term (current) drug therapy; Z95.810 Presence of automatic (implantable) cardiac defibrillator; Z95.5 Presence of coronary angioplasty implant and graft
CPT/HCPCS: 36415; 36416; 71045; 71275; 74177; 80048; 80053; 81003; 81015; 82550; 83605; 83690; 83880; 84484; 85025; 85379; 87040; 87086; 87804; 90471; 90732; 93005; 94760; 96361; 96365; 96372; 96375; G0009; G0378; J1650; J1956; J2270; J2405; Q9966; Q9967

== ENCOUNTER 2020-11-27 10:49 | Outpatient (CLI) | payer MEDICARE, OTHER ==
[2020-11-27 16:55] LABS: SARS-CoV-2 PCR by NAA Not Detected (NotDetected)
== END 2020-11-27 10:50 | disposition home or self-care (01) ==
LOC: LABBT 10:49
PROVIDERS: ATTEND Internal Medicine
DX: Z01.812 Encounter for preprocedural laboratory examination (principal); Z12.11 Encounter for screening for malignant neoplasm of colon; D64.9 Anemia, unspecified; Z20.822 Contact with and (suspected) exposure to COVID-19
CPT/HCPCS: U0003; U0005

== ENCOUNTER 2020-12-01 08:00 | Day surgery (SDC) | payer MEDICARE, OTHER ==
[2020-11-30 12:38] VITALS: BMI 26.2
[2020-12-01] MEDS ORDERED: PROPOFOL 200 MG/20 ML VIAL ONE (09:34)
== END 2020-12-01 11:00 | disposition home or self-care (01) ==
LOC: SDC 08:00
PROVIDERS: ATTEND Internal Medicine
PROC: 0DBK8ZX Excision of Ascending Colon, Via Natural or Artificial Opening Endoscopic, Diagnostic (ICD-10-PCS; principal; 2020-12-01)
PROC: 0DBL8ZX Excision of Transverse Colon, Via Natural or Artificial Opening Endoscopic, Diagnostic (ICD-10-PCS; 2020-12-01)
DX: Z12.11 Encounter for screening for malignant neoplasm of colon (principal); D12.2 Benign neoplasm of ascending colon; K63.5 Polyp of colon; D64.9 Anemia, unspecified
CPT/HCPCS: 36416; 88305; J2704

== ENCOUNTER 2021-04-15 09:27 | Outpatient (CLI) | payer MEDICARE, OTHER | END 2021-04-15 09:28 | disposition home or self-care (01) | LOC: NM 09:27 | PROVIDERS: ATTEND Urology | DX: C61 Malignant neoplasm of prostate (principal) | CPT/HCPCS: 78306; A9503 ==

== ENCOUNTER 2021-04-19 08:28 | Outpatient (CLI) | payer MEDICARE, OTHER ==
[2021-04-19] MEDS ORDERED: Iopamidol 370 76% 100 ML VIAL ONE (09:25)
== END 2021-04-19 08:29 | disposition home or self-care (01) ==
LOC: CT 08:28
PROVIDERS: ATTEND Internal Medicine Hematology & Oncology
DX: C61 Malignant neoplasm of prostate (principal); R91.1 Solitary pulmonary nodule
CPT/HCPCS: 71260; Q9967

== ENCOUNTER 2021-12-14 12:31 | Outpatient (CLI) | payer MEDICARE | END 2021-12-14 12:32 | disposition home or self-care (01) | LOC: CT 12:31 | PROVIDERS: ATTEND Internal Medicine Hematology & Oncology | DX: R91.1 Solitary pulmonary nodule (principal); C61 Malignant neoplasm of prostate; J92.0 Pleural plaque with presence of asbestos | CPT/HCPCS: 71250 ==

== ENCOUNTER 2023-04-18 08:45 | Outpatient (CLI) | payer MEDICARE, OTHER | END 2023-04-18 08:46 | LOC: PET 08:45 | PROVIDERS: ATTEND Internal Medicine | DX: R91.1 Solitary pulmonary nodule (principal) | CPT/HCPCS: 78815; A9552 ==

== ENCOUNTER 2024-05-31 08:42 | Outpatient (CLI) | payer MEDICARE, OTHER | END 2024-05-31 08:43 | disposition home or self-care (01) | LOC: BICCT 08:42 | PROVIDERS: ATTEND Internal Medicine | DX: R91.1 Solitary pulmonary nodule (principal) | CPT/HCPCS: 71250 ==

== ENCOUNTER 2024-06-21 09:50 | Outpatient (CLI) | payer MEDICARE, OTHER | END 2024-06-21 09:51 | disposition home or self-care (01) | LOC: RAD 09:50 | PROVIDERS: ATTEND Internal Medicine | DX: R06.00 Dyspnea, unspecified (principal); J90 Pleural effusion, not elsewhere classified; R91.8 Other nonspecific abnormal finding of lung field | CPT/HCPCS: 71046 ==